=== PATIENT | female | born 1950 | race Hispanic/Latino ===

== ENCOUNTER 2017-07-23 03:42 | Emergency (ER) | payer OTHER ==
[2017-07-23 06:36] VITALS: BMI 21.9
[2017-07-23 06:37] VITALS: BP 148/79; PULSE 78; RESP 18; TEMP 98.4; O2SAT 99
--- NOTE | 2017-07-23 11:10 | CT ---
PROCEDURE: CT NECK WITHOUT CONTRAST HISTORY: Evaluation COMPARISON: None. TECHNIQUE: CT of the neck without intravenous contrast. Coronal and sagittal reformats generated. Radiation dose: DLP 246 mGy-cm This CT exam was performed using one or more of the following dose reduction techniques: Automated exposure control, adjustment of the mA and/or kV according to patient size, and/or use of iterative reconstruction technique. FINDINGS: NASOPHARYNX: Unremarkable. SUPRAHYOID NECK: Unremarkable oropharynx, oral cavity, parapharyngeal space and retropharyngeal space. INFRAHYOID NECK: Unremarkable larynx, hypopharynx, and supraglottic space. Vocal cords intact. MASS: None. GLANDS: Parotid and submandibular glands unremarkable. Normal size thyroid gland, without nodule. LYMPH NODES: Normal. No lymphadenopathy. CERVICAL SPINE: No fracture or focal lesion. OTHER FINDINGS: None. IMPRESSION: Unremarkable non-contrast enhanced CT of the neck.
== END 2017-07-23 06:28 | disposition home or self-care (01) ==
LOC: ED 03:42
DX: R07.0 Pain in throat (principal)